=== PATIENT | male | born 1950 | race Caucasian/White ===

== ENCOUNTER 2020-08-31 12:33 | Emergency (ER) | payer MEDICARE, OTHER ==
[~2020-08-31 12:33] MED LIST: AMOX TR-K CLV1 EAC4 GT; MUCINEX 600MG600 MG PO; PREDNISONE 20MG20 MG GT; PULMICORT0.5 MG/2 M NEB; VENTOLIN (2.5 MG/3 M INH; VIBRAMYCIN100 MG GT
[2020-08-31] MEDS ORDERED: TRAMADOL HCL50 MG PEG (14:57)
[2020-08-31] MEDS ORDERED: CEPHALEXIN500 MG PO (15:00)
== END 2020-08-31 15:51 | disposition home or self-care (01) ==
LOC: FER 12:33
DX: S82.251A Displaced comminuted fracture of shaft of right tibia, initial encounter for closed fracture (principal); S82.451A Displaced comminuted fracture of shaft of right fibula, initial encounter for closed fracture; S80.811A Abrasion, right lower leg, initial encounter; L03.115 Cellulitis of right lower limb; I25.2 Old myocardial infarction; W05.0XXA Fall from non-moving wheelchair, initial encounter; Y92.818 Other transport vehicle as the place of occurrence of the external cause
CPT/HCPCS: 73600; 73630